=== PATIENT | female | born 1995 | race Hispanic/Latino ===

== ENCOUNTER 2018-07-20 17:47 | Emergency (ER) | payer OTHER ==
[~2018-07-20] VITALS: Ht 157.5 cm; Wt 81.6 kg
[2018-07-20] MEDS ORDERED: ACETAMINOPHEN 325 MG TAB PO ONE (18:15)
[2018-07-20] MEDS ORDERED: CYCLOBENZAPRINE HCL 10 MG TAB PO ONE (18:15)
[2018-07-20 18:54] VITALS: BP 122/78
== END 2018-07-20 19:14 | disposition home or self-care (01) ==
LOC: ER 17:47
DX: O26.93 Pregnancy related conditions, unspecified, third trimester (principal); S76.211A Strain of adductor muscle, fascia and tendon of right thigh, initial encounter; W01.0XXA Fall on same level from slipping, tripping and stumbling without subsequent striking against object, initial encounter; Y93.01 Activity, walking, marching and hiking; Y92.512 Supermarket, store or market as the place of occurrence of the external cause
CPT/HCPCS: 99283